=== PATIENT | male | born 1980 | race Caucasian/White ===

== ENCOUNTER 2021-01-20 19:59 | Emergency (ER) | payer OTHER ==
[~2021-01-20] VITALS: Ht 170.2 cm; Wt 69.0 kg
[2021-01-20 20:54] VITALS: BP 124/75
[2021-01-20] MEDS ORDERED: DOXYCYCLINE 100MG CAPSULE PO STA (22:25)
[2021-01-20] MEDS ORDERED: DOXY100C43 PO (22:29)
== END 2021-01-20 23:06 | disposition home or self-care (01) ==
LOC: ER 20:02
DX: L03.116 Cellulitis of left lower limb (principal); Z72.89 Other problems related to lifestyle; Z79.2 Long term (current) use of antibiotics
CPT/HCPCS: 73564; 99283

== ENCOUNTER 2022-09-20 17:53 | Emergency (ER) | payer OTHER ==
[~2022-09-20] VITALS: Ht 170.2 cm; Wt 72.7 kg
[2022-09-20 17:54] VITALS: BP 130/79
[2022-09-20] MEDS ORDERED: CEPH-585 PO (20:30)
[2022-09-20] MEDS ORDERED: cephalexin 250mg capsule PO ONE (21:10)
== END 2022-09-20 20:52 | disposition home or self-care (01) ==
LOC: ER 17:53
DX: L03.011 Cellulitis of right finger (principal); Z79.899 Other long term (current) drug therapy
CPT/HCPCS: 73140; 99283

== ENCOUNTER 2023-08-14 18:08 | Emergency (ER) | payer SELFPAY ==
[~2023-08-14] VITALS: Ht 172.7 cm; Wt 69.7 kg
[~2023-08-14 18:08] MED LIST: CEPH-585 PO
[2023-08-14 18:10] VITALS: BP 115/81; PULSE 53; RESP 16; TEMP 98.4; O2SAT 97
[2023-08-14] MEDS ORDERED: ACYC-126 PO ×3 (18:16→19:27)
[2023-08-14] MEDS ORDERED: PRED20TA PO ×3 (18:16→19:27)
[2023-08-14] MEDS ORDERED: CEPH-585 PO (19:27)
== END 2023-08-14 19:37 | disposition home or self-care (01) ==
LOC: ER 18:08
DX: K12.0 Recurrent oral aphthae (principal); Z79.2 Long term (current) use of antibiotics; Z79.899 Other long term (current) drug therapy
CPT/HCPCS: 99283

== ENCOUNTER 2024-04-04 13:31 | Emergency (ER) | payer MEDICAID ==
[~2024-04-04] VITALS: Ht 172.7 cm; Wt 67.8 kg
[~2024-04-04 13:31] MED LIST changes: +ACYC-126 PO; +PRED20TA PO
[2024-04-04] MEDS ORDERED: DEXA6TAB PO (15:26)
[2024-04-04] MEDS ORDERED: CYCL-1 PO (15:26)
[2024-04-04 15:59] VITALS: BP 142/75; PULSE 78; RESP 18; TEMP 97.9; O2SAT 99
== END 2024-04-04 15:58 | disposition home or self-care (01) ==
LOC: ER 13:32
DX: M54.50 Low back pain, unspecified (principal); Z79.899 Other long term (current) drug therapy; Z79.2 Long term (current) use of antibiotics
CPT/HCPCS: 99283

== ENCOUNTER 2024-04-06 14:38 | Emergency (ER) | payer MEDICAID ==
[~2024-04-06] VITALS: Ht 172.7 cm; Wt 70.0 kg
[~2024-04-06 14:38] MED LIST changes: +CYCL-1 PO; +DEXA6TAB PO
[2024-04-06 14:44] VITALS: TEMP 98.8
[2024-04-06] MEDS: ketorolac trometh 15mg/ml vial 15 MG/ML ML IM ONE (15:23)
[2024-04-06] MEDS: HYDROcodone/acetaminophen 10/325mg tab PO ONE (15:23)
[2024-04-06] MEDS ORDERED: GABA300C PO (15:27)
[2024-04-06] MEDS ORDERED: HYDR-3972 PO (15:27)
[2024-04-06 15:36] VITALS: BP 134/78; PULSE 74; RESP 18; O2SAT 98
== END 2024-04-06 15:43 | disposition home or self-care (01) ==
LOC: ER 14:39
DX: M54.17 Radiculopathy, lumbosacral region (principal); M79.604 Pain in right leg; Z79.2 Long term (current) use of antibiotics; Z79.899 Other long term (current) drug therapy; Z79.52 Long term (current) use of systemic steroids; Z72.89 Other problems related to lifestyle
CPT/HCPCS: 96372; 99283; J1885

== ENCOUNTER 2024-04-20 17:24 | Emergency (ER) | payer MEDICAID ==
[~2024-04-20] VITALS: Ht 170.2 cm; Wt 67.4 kg
[~2024-04-20 17:24] MED LIST changes: +GABA300C PO; +HYDR-3972 PO
[2024-04-20 17:27] VITALS: BP 117/78; PULSE 72; RESP 16; O2SAT 97
[2024-04-20] MEDS ORDERED: IBUP-1984 PO (17:49)
[2024-04-20] MEDS ORDERED: GABA600T13 PO (17:49)
[2024-04-20 17:58] VITALS: TEMP 98
== END 2024-04-20 18:01 | disposition home or self-care (01) ==
LOC: ER 17:25
DX: Z76.0 Encounter for issue of repeat prescription (principal); Z79.899 Other long term (current) drug therapy; Z79.1 Long term (current) use of non-steroidal anti-inflammatories (NSAID); Z79.2 Long term (current) use of antibiotics
CPT/HCPCS: 99281

== ENCOUNTER 2025-02-16 16:54 | Emergency (ER) | payer MEDICAID ==
[~2025-02-16] VITALS: Ht 172.7 cm; Wt 69.8 kg
[~2025-02-16 16:54] MED LIST changes: +GABA-1405 PO; -HYDR-3972 PO; +ONDA-243 PO
[2025-02-16 17:08] VITALS: BP 113/72; PULSE 68; RESP 16; TEMP 98; O2SAT 97
== END 2025-02-16 20:13 | disposition left against medical advice (07) ==
LOC: ER 16:54
DX: Z00.8 Encounter for other general examination (principal); Z53.21 Procedure and treatment not carried out due to patient leaving prior to being seen by health care provider

== ENCOUNTER 2025-02-17 10:13 | Emergency (ER) | payer MEDICAID ==
[~2025-02-17] VITALS: Ht 172.7 cm; Wt 70.6 kg
--- NOTE | 2025-02-17 10:59 | Physician Documentation ---
History of Present Illness ~ Chief Complaint: Medical Clearance Stated Complaint: MED CLEARANCE Time Seen by MD: 10:55 Primary Medical Doctor: NONE HPI Patient is a 44-year-old gentleman that presents to the emergency department for medical screening and clearance so that he may check himself into a rehab facility. Reports that he has not use alcohol or drugs for the last four days does not feel like he is withdrawing and has no other reported concerning symptoms at this time. Tetanus within 5 years?: Yes Medication Reconciliation Allergies: Coded Allergies: No Known Allergies (Unverified , 02/17/25) Scheduled Acyclovir (Acyclovir), 1 TAB PO Q8H Cephalexin*Monohydrate* (Keflex*), 2 CAP PO BID Cyclobenzaprine* (Cyclobenzaprine*), 1 TAB PO HS Dexamethasone (Dexamethasone), 1 TAB PO ONCE Gabapentin (Neurontin), 1 CAP PO HS Gabapentin (Gabapentin), 1 TAB PO Q8H Prednisone* (Prednisone*), 3 TAB PO DAILY Scheduled PRN ONDANSETRON ODT 4mg tablet (Ondansetron Odt), 1 TABLET PO Q6H PRN for nausea/vomiting Past Medical History Past Medical History: No Pertinent History Past Surgical History: no surgical history Alcohol Use: Occasionally Lives with: S/O Lives In: Home Occupation: employed Review of Systems ROS As stated above in the HPI, otherwise all systems are reviewed and negative. Physical Exam Vital Signs: Temperature: 97.7, Source: Temporal, Heart Rate: 43, Respiratory Rate: 16, BP: 112/83, Pulse Oximetry: 96, Weight: 70.600 Oxygen Flow Rate: 0 Physical Exam VITALS: Reviewed and as above. GENERAL: Alert, no apparent distress. HEENT: Normocephalic, atraumatic, PERRL, EOMI, dry mucosa, no erythema RESPIRATORY: Lungs clear, normal breath sounds, no respiratory distress. CHEST: No accessory muscle use, no retractions CV: Regular rate, rhythm, no edema, no murmur, No: JVD GI: Soft, non-tender, bowels sounds present, no rebound, guarding, or rigidity BACK: No CVA tenderness, or swelling MUSCULOSKELETAL No deformities, no edema SKIN: Warm and dry, no rash NEURO: Oriented x4, No motor or sensory deficit PSYCH: Normal mood and affect, no agitation Progress Results/Orders Results/Orders Vital Signs 02/17/25 02/17/25 10:30 11:18 Temp 97.7 97.7 Pulse 43 50 Resp 16 16 B/P (MAP) 112/83 110/62 Pulse Ox 96 99 O2 Flow Rate 0 Medical Decision Making Findings Patient presented to the emergency department for evaluation for medical clearance and physical exam to attend rehab. Patient is medically cleared at this time no concerning findings. Differential Dx:Considerations: Include: Intoxication-Alcohol, Intoxication- Other drug, Personality disorder, Substance abuse disorder, Acute delirium, Closed head injury, Cervical spine injury, Skull fracture, Fracture(s), Abrasion, Contusion, Foreign body, Hematoma, Laceration, Alcohol withdrawl sy ndrom, Encephalopathy, Hepatitis, Medically stable, Other Departure Disposition: 01 HOME / SELF CARE / HOMELESS Impression: Primary Impression: General medical exam Condition: Stable Discharge Instructions: Medical Screening Exam Additional Instructions: He was seen in the emergency department and underwent a medical screening and evaluation to be cleared medically so that you may present to a rehabilitation center of her choice. Patient has been medically cleared in his medically appropriate to attend a rehabilitation center at this time. No evidence of withdrawing or any other concerning findings at this time. Patient's vital signs are stable inappropriate at this time. Referrals: NO PRIMARY CARE PROVIDER (PCP) Education Educated: Patient Educated regarding: treatment, need for follow up Signature Scribe Signature: A Attestation: Scribed for Aris Gaxiola by RACHELE Bowden . 02/19/25 12:51 ARIS GAXIOLA Feb 17, 2025 10:59
[2025-02-17 11:18] VITALS: BP 110/62; PULSE 50; RESP 16; TEMP 97.7; O2SAT 99
== END 2025-02-17 11:20 | disposition home or self-care (01) ==
LOC: ER 10:13
DX: Z13.89 Encounter for screening for other disorder (principal); Z72.89 Other problems related to lifestyle; Z79.899 Other long term (current) drug therapy
CPT/HCPCS: 99282

== ENCOUNTER 2025-07-01 09:09 | Emergency (ER) | payer MEDICAID ==
[~2025-07-01] VITALS: Ht 170.2 cm; Wt 64.3 kg
[2025-07-01 09:23] VITALS: BP 123/86; PULSE 62; RESP 18; TEMP 97.8; O2SAT 99
--- NOTE | 2025-07-01 09:29 | Physician Documentation ---
History of Present Illness ~ Chief Complaint: Medical Clearance Stated Complaint: MED CLEARANCE Time Seen by MD: 09:25 Primary Medical Doctor: NONE HPI Is a very pleasant 44-year-old male that presents to the emergency department for medical clearance so that he can attend the [facility]. 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 Patient reports last use of methamphetamine was approximately 5 hours ago. Patient denies any medical emotional or psychological needs at this time. Tetanus within 5 years?: Yes Medication Reconciliation Allergies: Coded Allergies: No Known Allergies (Unverified , 02/17/25) Scheduled Acyclovir (Acyclovir), 1 TAB PO Q8H Cephalexin*Monohydrate* (Keflex*), 2 CAP PO BID Cyclobenzaprine* (Cyclobenzaprine*), 1 TAB PO HS Dexamethasone (Dexamethasone), 1 TAB PO ONCE Gabapentin (Neurontin), 1 CAP PO HS Gabapentin (Gabapentin), 1 TAB PO Q8H Prednisone* (Prednisone*), 3 TAB PO DAILY Scheduled PRN ONDANSETRON ODT 4mg tablet (Ondansetron Odt), 1 TABLET PO Q6H PRN for nausea/vomiting Past Medical History Past Medical History: No Pertinent History Past Surgical History: no surgical history Alcohol Use: Occasionally Lives with: S/O Lives In: Home Occupation: employed Review of Systems ROS As stated above in the HPI, otherwise all systems are reviewed and negative. Physical Exam Vital Signs: Temperature: 97.8, Source: Temporal, Heart Rate: 62, Respiratory Rate: 18, BP: 123/86, Pulse Oximetry: 99, Weight: 64.300 Oxygen Flow Rate: 0 Physical Exam VITALS: Reviewed and as above. GENERAL: Alert, no apparent distress. HEENT: Normocephalic, atraumatic, PERRL, EOMI, dry mucosa, no erythema RESPIRATORY: normal breath sounds, no respiratory distress. CHEST: No accessory muscle use, no retractions CV: Regular rate, rhythm, no edema, no murmur, No: JVD GI: Soft, non-tender BACK: No CVA tenderness, or swelling MUSCULOSKELETAL No deformities, no edema SKIN: Warm and dry, no rash NEURO: Oriented x4, No motor or sensory deficit PSYCH: Normal mood and affect, no agitation Medical Decision Making Additional information obtaine: other Findings Is a very pleasant 44-year-old male that presents to the emergency department for medical clearance so that he can attend the [facility]. 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 Patient reports last use of methamphetamine was approximately 5 hours ago. Patient denies any medical emotional or psychological needs at this time. Differential Dx:Considerations: Include: Intoxication-Alcohol, Intoxication- Other drug, Personality disorder, Substance abuse disorder, Acute delirium, Closed head injury, Cervical spine injury, Skull fracture, Fracture(s), Abrasion, Contusion, Foreign body, Hematoma, Laceration, Alcohol withdrawl syndrom, Encephalopathy, Hepatitis, Medically stable, Other Departure Disposition: 01 HOME / SELF CARE / HOMELESS Impression: Primary Impression: General medical exam Condition: Stable Discharge Instructions: Medical Screening Exam Additional Instructions: Is a very pleasant 44-year-old male that presents to the emergency department for medical clearance so that he can attend the [facility]. 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 Patient reports last use of methamphetamine was approximately 5 hours ago. Patient denies any medical emotional or psychological needs at this time. Has been examined here in the emergency department and and is medically cleared to attend the [facility]. Referrals: NO PRIMARY CARE PROVIDER (PCP) Education Educated: Patient Educated regarding: diagnosis, treatment, need for follow up Signature Scribe Signature: A Attestation: Scribed for Emergency,Department by RACHELE Bowden . 07/01/25 09:29 ARIS GAXIOLA Jul 01, 2025 09:29
== END 2025-07-01 09:47 | disposition home or self-care (01) ==
LOC: ER 09:10
DX: Z00.00 Encounter for general adult medical examination without abnormal findings (principal); Z79.899 Other long term (current) drug therapy; Z72.89 Other problems related to lifestyle
CPT/HCPCS: 99282